=== PATIENT | male | born 2000 | race Two or more races ===

== ENCOUNTER 2021-03-27 13:01 | Emergency (ER) | payer MEDICAID ==
--- NOTE | 2021-03-27 16:44 | EDM.PDOC ---
ED HPI GENERAL MEDICAL PROBLEM - General Chief Complaint: Respiratory Problem Stated Complaint: LUNG PAIN COUGH Time Seen by Provider: 03/27/21 15:42 Source of Information: Reports: Patient History Limitations: Reports: No Limitations - History of Present Illness INITIAL COMMENTS - FREE TEXT/NARRATIVE: The patient presents with a sore throat, cough, body aches and fatigue. This has been going on for a few days. He has no medical problems. He does vape but he quit 3 days ago when this started. He has no medical problems. He has some burning in his throat that extends to his upper chest. Onset: Gradual Duration: Day(s): (3) Severity: Moderate Improves with: Reports: None Worsens with: Reports: None Associated Symptoms: Reports: Cough Generalized Pain Score (Numeric/FACES): 5 - Related Data Allergies Allergy/AdvReac Type Severity Reaction Status Date / Time No Known Allergies Allergy Verified 03/27/21 15:13 Home Meds: Home Meds . [No Known Home Meds] 03/27/21 [History] Past Medical History - Past Health History Medical/Surgical History: Denies Medical/Surgical History - Infectious Disease History Infectious Disease History: Reports: Novel Coronavirus Social & Family History - Tobacco Use Tobacco Use Status *Q: Current Every Day Tobacco User Years of Tobacco use: 3 Packs/Tins Daily: 1 - Caffeine Use Caffeine Use: Reports: None - Recreational Drug Use Recreational Drug Use: No ED ROS GENERAL - Review of Systems Review Of Systems: See Below Constitutional: Reports: Weakness, Fatigue. Denies: Fever, Chills HEENT: Reports: Throat Pain Respiratory: Reports: Cough. Denies: Shortness of Breath Cardiovascular: Reports: No Symptoms Endocrine: Reports: No Symptoms GI/Abdominal: Reports: No Symptoms : Reports: No Symptoms ED EXAM, GENERAL - Physical Exam Exam: See Below Exam Limited By: No Limitations General Appearance: Alert, No Apparent Distress Ears: Normal External Exam Nose: Normal Inspection Throat/Mouth: Normal Inspection Head: Atraumatic, Normocephalic Neck: Normal Inspection Respiratory/Chest: No Respiratory Distress, Lungs Clear, Normal Breath Sounds Cardiovascular: Regular Rate, Rhythm, No Edema, No Murmur GI/Abdominal: Soft, Non-Tender, No Organomegaly, No Mass Back Exam: Normal Inspection Extremities: Normal Inspection Neurological: Alert, Oriented, No Motor/Sensory Deficits Course - Vital Signs Last Recorded V/S: Last Vital Signs Temp 97.8 F 03/27/21 15:11 Pulse 77 03/27/21 15:11 Resp 20 03/27/21 15:11 BP 146/94 H 03/27/21 15:11 Pulse Ox 96 03/27/21 15:11 - Orders/Labs/Meds Labs: Laboratory Tests 03/27/21 03/27/21 Range/Units 15:07 15:08 SARS-CoV-2 RNA ([facility]) Positive H (NEGATIVE) Group A Strep (PCR) Not detected (NOT DETECT) - Re-Assessments/Exams Free Text/Narrative Re-Assessment/Exam: 03/27/21 16:43 The influenza and strep are negative. He is positive for COVID 19. I did offer him the monoclonal antibodies and he refused. Departure - Departure Time of Disposition: 16:45 Disposition: Home, Self-Care 01 Condition: Good Clinical Impression: COVID-19 - Discharge Information *PRESCRIPTION DRUG MONITORING PROGRAM REVIEWED*: Not Applicable *COPY OF PRESCRIPTION DRUG MONITORING REPORT IN PATIENT AMANDA: Not Applicable Referrals: PCP,None [Primary Care Provider] - Cm Bagley MD [Physician] - 1 Week Forms: ED Department Discharge Additional Instructions: Drink plenty of fluids. Take tylenol or motrin for any pain. Take the phenergan with codeine every 6 hours as needed for cough. If you are having trouble breathing, try laying on your stomach that will help oxygenating the most lung tissue. You need to quarantine for 10 days from symptom onset. Please return if you are worse. Sepsis Event Note (ED) - Focused Exam Vital Signs: Vital Signs Temp Pulse Resp BP Pulse Ox 03/27/21 15:11 97.8 F 77 20 146/94 H 96
== END 2021-03-27 16:52 | disposition home or self-care (01) ==
LOC: JD.ED 13:01
DX: U07.1 COVID-19 (principal); Z72.0 Tobacco use
CPT/HCPCS: 87651-QW; 87804; 99283; U0002

== ENCOUNTER 2022-07-19 14:25 | Emergency (ER) | payer BC ==
[2022-07-19 16:48] LABS: CORONAVIRUS COVID-19 NAA POSITIVE (NEGATIVE)
== END 2022-07-19 18:02 | disposition home or self-care (01) ==
LOC: JD.ED 14:25
DX: U07.1 COVID-19 (principal); Z86.16 Personal history of COVID-19
CPT/HCPCS: 0241U; 99283